=== PATIENT | female | born 2000 | race Hispanic/Latino ===

== ENCOUNTER 2024-10-20 18:21 | Emergency (ER) | payer SELFPAY ==
[~2024-10-20] VITALS: Ht 157.5 cm; Wt 95.3 kg
--- NOTE | 2024-10-20 18:29 | ERN ---
ED Note History of Present Illness Stated Complaint: ABD PAIN Chief Complaint: Abdominal Pain Time Seen by MD: 18:24 Dictation: PATIENT IS A 23-YEAR-OLD FEMALE COMING IN TODAY WITH LEFT LOWER QUADRANT/PELVIC PAIN FOR LAST 2-3 DAYS WITH FEVER. SHE DOES NOT HAVE A THERMOMETER AT HOME WITH HER MOTHER SAID SHE HAS FELT HOT. SHE STATES SHE DOES HAVE A HISTORY OF CONSTIPATION AND HAS BEEN HAVING BOWEL MOVEMENTS HOWEVER THEY ARE NOT BIG NORMAL. SHE STATES SHE JUST FINISHED HER PERIOD YESTERDAY. HE HAS NOT SEEN HER PRIMARY CARE DOCTOR. Allergies: Coded Allergies: No Known Drug Allergies (Unverified Allergy, Unknown, 10/20/24) Past Medical History Past Medical History: Constipation, Other (CONSTIPATION) History: Not Applicable RN Note Reviewed/Agreed w/PFSH: Yes Review of System Dictation CONSTITUTIONAL: NEGATIVE EXCEPT FOR HPI HEAD/FACE: NEGATIVE EXCEPT FOR HPI EENT: NEGATIVE EXCEPT FOR HPI RESPIRATORY: NEGATIVE EXCEPT FOR HPI GASTROINTESTINAL/ABDOMINAL: NEGATIVE EXCEPT FOR HPI LEFT LOWER QUADRANT AND PELVIC PAIN TENDERNESS GENITOURINARY: NEGATIVE EXCEPT FOR HPI MUSCULOSKELETAL: NEGATIVE EXCEPT FOR HPI INTEGUMENTARY: NEGATIVE EXCEPT FOR HPI NEUROLOGICAL/PSYCH: NEGATIVE EXCEPT FOR HPI HEMATOLOGIC/LYMPHATIC: NEGATIVE EXCEPT FOR HPI ALL SYSTEMS NEGATIVE, EXCEPT NOTED ABOVE. 13 POINT REVIEW OF SYSTEMS ASSESSED AND ALL NEGATIVE EXCEPT FOR ABOVE. Initial Vital Sign VS Vital Signs Date Time Temp Pulse Resp B/P (MAP) Pulse Ox O2 Delivery O2 Flow Rate FiO2 10/20/24 18:24 99.7 92 18 146/84 100 Room Air 10/20/24 20:28 0 21 Physical Exam Dictation VITAL SIGNS REVIEWED GENERAL APPEARANCE: ALERT, ORIENTED X 3, MILD ACUTE DISTRESS, WELL DEVELOPED, NOURISHED. HEAD AND FACE: NON-TRAUMATIC. EYES: PERRL, PINK CONJUNCTIVAS, EYELID NO TRAUMA, ANTERIOR CHAMBER WITH ARCUS SENILIS. EARS: PINNAS INTACT AND NO SIGNS OF TRAUMA OR ERYTHEMA EAR CANALS CLEAR AND NO DISCHARGE TM NO ERYTHEMA NOSE: NO DISCHARGE, NO BLEEDING. OROPHARYNX: MOUTH NORMAL, TONGUE PINK, PHARYNX CLEAR,NO ERYTHEMA, TONSILS NO EXUDATES, NO ABSCESSES NOTED, MUCOUS MEMBRANE MOIST NECK: SUPPLE, NON-TENDER, NO THYROMEGALY, NO MASSES, NO JVD, NO BRUITS BREAST:DEFERRED CHEST:NO TENDERNESS, NO CREPITUS, NO PARADOXICAL MOVEMENT, NO RETRACTIONS LUNGS:CLEAR, WELL-VENTILATED, SYMMETRIC, NO RALES, NO WHEEZING, NO RHONCHI, NO STRIDOR, GOOD BREATH SOUNDS BILATERALLY HEART: REGULAR RATE, REGULAR RHYTHM, NO MURMUR, NO GALLOPS VASCULAR: NO PERIPHERAL EDEMA, ABDOMEN: SOFT, POSITIVE BOWEL SOUNDS, NONDISTENDED, NO GUARDING, MILD LEFT LOWER QUADRANT/PELVIC TENDERNESS WITH PALPATION NO REBOUND, NO MASSES NO HEPATOMEGALY, NO SPLENOMEGALY, NO ALLEN'S SIGN, NO HERNIAS. RECTAL: DEFERRED GENITAL: DEFERRED NEUROLOGICAL: NORMAL SPEECH, MOTOR FUNCTION INTACT, SENSORY FUNCTION INTACT MUSCULOSKELETAL: NECK NONTENDER, FULL RANGE OF MOTION, BACK NONTENDER, FULL RANGE OF MOTION, EXTREMITIES: NONTENDER, FULL RANGE OF MOTION SKIN: COLOR PINK, DRY, NO TURGOR, NO RASH, NO LACERATIONS, NO ABRASIONS, NO CONTUSIONS. LYMPHATIC: DEFERRED Results (Laboratory/Radiology) Laboratory/Radiology Laboratory Tests Test 10/20/24 18:40 10/20/24 19:38 Urine Color LIGHT-ORANGE (YELLOW) Urine Appearance CLOUDY (CLEAR) H Urine pH 5.5 (5.0-8.0) Urine Specific [place] 1.021 (1.001-1.031) Urine Protein 20 mg/dL (NEGATIVE) H Urine Glucose (UA) NEGATIVE mg/dL (NEGATIVE) Urine Ketones NEGATIVE mg/dL (NEGATIVE) Urine Occult Blood LARGE (NEGATIVE) H Urine Nitrate NEGATIVE (NEGATIVE) Urine Bilirubin NEGATIVE mg/dL (NEGATIVE) Urine Urobilinogen 0.2 mg/dL (0.2-1.0) Urine Leukocyte Esterase 500 Kimberly/uL (NEGATIVE) H Urine RBC TNTC /HPF (0-1) H Urine WBC TNTC /HPF (0-1) H Urine Squamous Epithelial Cells FEW /HPF (0-2) Urine Bacteria None /HPF (None Seen) Urine HCG, Qualitative NEGATIVE (NEGATIVE) White Blood Count 10.5 K/uL (4.8-10.8) Red Blood Count 5.36 MIL/uL (4.00-5.50) Hemoglobin 11.7 g/dL (12.0-16.0) L Hematocrit 38.0 % (36-48) Mean Corpuscular Volume 70.9 fL (79-99) L Mean Corpuscular Hemoglobin 21.8 pg (27.0-33.0) L Mean Corpuscular Hemoglobin Concent 30.8 g/dL (32.0-36.0) L Red Cell Distribution Width 16.2 % (11.0-15.5) H Platelet Count 364 K/uL (130-400) Mean Platelet Volume 10.2 fL (7.5-10.5) Immature Granulocyte % (Auto) 0.2 % (0-1) Neutrophils (%) (Auto) 62.8 % (40.0-77.0) Lymphocytes (%) (Auto) 27.3 % (21.0-51.0) Monocytes (%) (Auto) 8.3 % (3.0-13.0) Eosinophils (%) (Auto) 1.1 % (0.0-8.0) Basophils (%) (Auto) 0.3 % (0.0-5.0) Neutrophils # (Auto) 6.6 K/uL (1.8-7.7) Lymphocytes # (Auto) 2.9 K/uL (1.0-4.8) Monocytes # (Auto) 0.9 K/uL (0.1-1.0) Eosinophils # (Auto) 0.12 K/uL (0.00-0.70) Basophils # (Auto) 0.03 K/uL (0.00-0.20) Absolute Immature Granulocyte (auto 0.02 K/uL (0-1) Nucleated Red Blood Cells 0.0 % (0.0-0.19) Red Blood Cell Morphology See comments Sodium Level 132 mmol/L (136-145) L Potassium Level 3.6 mmol/L (3.5-5.1) Chloride Level 102 mmol/L (101-111) Carbon Dioxide Level 27 mmol/L (21-32) Blood Urea Nitrogen 10 mg/dL (7-18) Creatinine 0.8 mg/dL (0.5-1.0) Glomerular Filtration Rate Calc 107 mL/min (>90) Random Glucose 95 mg/dL (70-105) Total Calcium 8.9 mg/dL (8.5-10.1) Lipase 29 U/L (16-77) 2115, NON OB ULTRASOUND LEFT ADNEXA PELVIC NEGATIVE Labs Reviewed?: Yes ED Course ED Course Orders Procedure Category Date Status Time Cbc With Differential LAB 10/20/24 Complete 18:26 ,Urine Test LAB 10/20/24 Complete 18:26 Urinalysis Profile LAB 10/20/24 Complete 18:26 0.9%Nacl 1000ml (Ns PHA 10/20/24 Complete 1000ml) 18:30 Ketorolac PHA 10/20/24 Complete Tromethamine 30mg/Ml 18:30 Lipase LAB 10/20/24 Complete 18:26 Basic Metabolic Panel LAB 10/20/24 Complete 18:26 Culture Urine TESS 10/20/24 In Process 18:54 Ceftriaxone 1g Vial PHA 10/20/24 Complete (Rocephine 1g Inj) 20:30 Us Pelvic Non-Ob US 10/20/24 Taken Limited 20:09 Current Medications Medications (Trade) Dose Ordered Sig/Maxx Route PRN Reason Start Time Stop Time Status Last Admin Dose Admin Ceftriaxone Sodium (ROCEphine 1G INJ) 1 gm ONCE ONCE IVP 10/20/24 20:30 10/20/24 20:31 DC 10/20/24 20:33 Ketorolac Tromethamine (toRADol) 30 mg ONCE ONCE IVP 10/20/24 18:30 10/20/24 18:31 DC 10/20/24 20:27 Sodium Chloride 1,000 ml @ 0 mls/hr ONCE ONCE IV 10/20/24 18:30 10/20/24 18:31 DC 10/20/24 20:27 Vital Signs Date Time Temp Pulse Resp B/P (MAP) Pulse Ox O2 Delivery O2 Flow Rate FiO2 10/20/24 20:28 97.9 76 20 133/76 99 Room Air* 0 21 10/20/24 18:24 99.7 92 18 146/84 100 Room Air 2115, PATIENT SENT HOME AFTER BEING TREATED FOR ACUTE URINARY TRACT INFECTION WITH HEMATURIA AND PELVIC PAIN. FEELS BETTER AFTER TREATMENT WE WILL DISCHARGED HOME WITH AUGMENTIN IBUPROFEN AND PYRIDIUM. Medical Decision Making MDM MDM: DIFFERENTIAL DIAGNOSIS: ECTOPIC /UTI/HEMATURIA/ADNEXAL CYST/ELECTROLYTE IMBALANCE/DEHYDRATION/MASS RATIONALE: TESTS CONSIDERED AND ORDERED SECONDARY TO SHARED DECISION MAKING INCLUDE: RADIOLOGY/LABS PREVIOUS OUTSIDE RECORDS REVIEWED: OLD ER VISITS. REVIEWED RISK OF COMPLICATION AND/OR MORBIDITY OR MORTALITY OF PATIENT MANAGEMENT: NONE MEDICATIONS-PER MEDICATION RECONCILIATION NEED FOR HOSPITALIZATION: PATIENT DOES NOT MEET CRITERIA FOR HOSPITALIZATION. NO NEED FOR EMERGENCY MAJOR/MINOR SURGERY: NO THERE ARE NO SOCIAL CONCERNS WITH THIS PATIENT. PRESCRIPTION DRUG MANAGEMENT AUGMENTIN/IBUPROFEN/PYRIDIUM PRESCRIPTIONS WILL INCLUDE SYMPTOMATIC CARE PATIENT'S PRIOR EXTERNAL MEDICAL RECORDS FROM OTHER ER VISITS WERE REVIEWED BY ME INDICATED. PRIOR TESTING AND RESULTS FROM PREVIOUS VISITS WERE REVIEWED. PRIOR TESTS WERE TAKEN INTO ACCOUNT WITH MEDICAL DECISION MAKING AND RESOURCE UTILIZATION, INDEPENDENT HISTORIAN/HISTORIANS WERE USED TO OBTAIN COMPLETE MEDICAL HISTORY. I INDEPENDENTLY INTERPRETED THE TEST THAT WERE PERFORMED, RESULTS WERE REVIEWED BY ME AND CONSIDERED FINDINGS ON RADIOLOGY IF ORDERED. MEDICAL MANAGEMENT AND EXAMINATION INTERPRETATION DISCUSSIONS WERE HAD BY ME WITH OTHER QUALIFIED HEALTHCARE PROFESSIONALS INDICATED FOR THE PATIENT'S CARE. DX & DISP Disposition: Discharge Departure Impression: Primary Impression: Acute cystitis with hematuria Additional Impression: Hyponatremia Condition: Stable Scripts Phenazopyridine HCl (Pyridium) 200 Mg Tab 1 TAB PO TID for urinary discomfort for 3 Days, #9 TAB 0 Refills after food Prov: CHRISTO GRESHAM NP 10/20/24 Amoxicillin/Potassium Clav (Amox Tr-K Clv 875-125 mg Tab) 875 Mg-125 Mg Tablet 1 EACH PO BID for 7 Days, #14 TAB 0 Refills Prov: CHRISTO GRESHAM NP 10/20/24 Ibuprofen (Ibuprofen 800 mg Tab) 800 Mg Tab 800 MG PO Q8H PRN for fever or pain, #30 TAB 0 Refills Prov: CHRISTO GRESHAM NP 10/20/24 Additional Instructions: FOLLOW-UP WITH PRIMARY CARE PROVIDER IN 1 TO 2 DAYS. TAKE MEDICATIONS DIRECTED HERE IN THE EMERGENCY ROOM. OKAY TO CONTINUE HOME MEDICATIONS UNLESS OTHERWISE DISCUSSED DURING YOUR VISIT IN THE EMERGENCY ROOM TODAY. RETURN TO YOUR NEAREST EMERGENCY ROOM IF SYMPTOMS WORSEN OR IF THERE IS NO IMPROVEMENT. CALL 911 IF YOU NEED IMMEDIATE ASSISTANCE. TAKE TYLENOL OR MOTRIN [id number] NEEDED AND IF NO CONTRAINDICATIONS ARE PRESENT. INCREASE ORAL HYDRATION. A WOUND CULTURE OR URINE CULTURE WAS ORDERED HERE IN THE EMERGENCY ROOM DEPARTMENT PLEASE FOLLOW-UP WITH PRIMARY CARE PROVIDER AND ADVISE THEM TO GET REPEAT PORTS FROM OUR FACILITY. IF YOU HAD ANY LEONARDO WRAP/SPLINTS THAT WERE APPLIED HERE, PLEASE DO NOT REMOVE THEM UNTIL YOU SEE YOUR PRIMARY CARE OR SPECIALTY. TAKE ANTIBIOTICS DIRECTED UNTIL GONE., TAKE IBUPROFEN DIRECTED FOR PAIN. INCREASE YOUR WATER INTAKE. FOLLOW UP WITH YOUR PRIMARY CARE DOCTOR IN 1-2 DAYS Time of Disposition: 21:19 I have reviewed the case, and I agree with, Diagnosis and Plan CHRISTO GRESHAM NP Oct 20, 2024 18:29
[2024-10-20 18:51] LABS: APPEARANCE,URINE CLOUDY (CLEAR); BILIRUBIN,URINE NEGATIVE (NEGATIVE); COLOR,URINE LIGHT-ORANGE (YELLOW); GLUCOSE, URINE (UA) NEGATIVE (NEGATIVE); KETONES,URINE NEGATIVE (NEGATIVE); LEUKOCYTE ESTERASE ,URINE 500 Leu/uL (NEGATIVE); NITRATE,URINE NEGATIVE (NEGATIVE); OCCULT BLOOD,URINE LARGE (NEGATIVE); PH,URINE 5.5 (5.0-8.0); PROTEIN,URINE 20 mg/dL (NEGATIVE); UROBILINOGEN,URINE 0.2 mg/dL (0.2-1.0)
[2024-10-20 18:53] LABS: HCG,QUALITATIVE URINE NEGATIVE (NEGATIVE)
[2024-10-20 18:54] LABS: ADD UA MICROSCOPIC YES
[2024-10-20 18:56] LABS: RBC,URINE TNTC /HPF (0-1); SQUAMOUS EPITHELIAL CELL,UR FEW /HPF (0-2); WBC,URINE TNTC /HPF (0-1)
[2024-10-20 19:44] LABS: BASOPHILS # (AUTO) 0.03 K/uL (0.00-0.20); BASOPHILS % (AUTO) 0.3 % (0.0-5.0); EOSINOPHILS # (AUTO) 0.12 K/uL (0.00-0.70); EOSINOPHILS % (AUTO) 1.1 % (0.0-8.0); IMMATURE GRANULOCYTE ABSOLUTE 0.02 K/uL (0-1); LYMPHOCYTES # (AUTO) 2.9 K/uL (1.0-4.8); LYMPHOCYTES % (AUTO) 27.3 % (21.0-51.0); MEAN CORPUSCULAR HEMOGLOBIN 21.8 pg (27.0-33.0); MEAN CORPUSCULAR HGB CONC 30.8 g/dL (32.0-36.0); MEAN CORPUSCULAR VOLUME 70.9 fL (79-99); MONOCYTES # (AUTO) 0.9 K/uL (0.1-1.0); MONOCYTES % (AUTO) 8.3 % (3.0-13.0); NEUTROPHILS # (AUTO) 6.6 K/uL (1.8-7.7); NEUTROPHILS % (AUTO) 62.8 % (40.0-77.0); PLATELET COUNT (AUTO) 364 K/uL (130-400); RED BLOOD CELL COUNT(AUTO) 5.36 MIL/uL (4.00-5.50); RED CELL DISTRIBUTION WIDTH 16.2 % (11.0-15.5); WHITE BLOOD COUNT (AUTO) 10.5 K/uL (4.8-10.8)
[2024-10-20 19:53] LABS: CREATININE 0.8 mg/dL (0.5-1.0); POTASSIUM 3.6 mmol/L (3.5-5.1)
[2024-10-20] MEDS: ketOROlac 30MG VIAL (30MG/ML) IVP ONE (20:27)
[2024-10-20] MEDS: 0.9%NACL 1000ML 1,000 ML IV ONE (20:27)
[2024-10-20] MEDS: cefTRIAXone 1G VIAL IVP ONE (20:33)
[2024-10-20] MEDS ORDERED: IBUP-2077 PO (21:20)
[2024-10-20] MEDS ORDERED: PHEN-847 PO (21:20)
[2024-10-20] MEDS ORDERED: AMOX1TAB16 PO (21:20)
[2024-10-20 21:43] VITALS: BP 119/67; PULSE 70; RESP 20; TEMP 97.8; O2SAT 99
--- NOTE | 2024-10-21 08:20 | HMCIMG ---
US PELVIC NON-OB LIMITED REASON: LEFT ADNEXAL PELVIC PAIN COMPARISON: None TECHNIQUE: Routine pelvic sonogram was performed. FINDINGS: Uterus is 8.6 x 2.9 x 3.8 cm. Endometrium is 4 mm. There are no endometrial or myometrial masses. Both ovaries appear unremarkable. There is normal-appearing blood flow to each ovary. There are no cysts or masses. There is no significant free fluid in the pelvic cul-de-sac. IMPRESSION: 1. Normal pelvic sonogram.
== END 2024-10-20 21:45 | disposition home or self-care (01) ==
LOC: EDH 18:21
DX: N30.01 Acute cystitis with hematuria (principal); E87.1 Hypo-osmolality and hyponatremia
CPT/HCPCS: 99285; 96374; 76857; 96375; 80048; 83690; 85025; 87086; 81001; 81025; 36415; J7030; J0696; J1885